=== PATIENT | female | born 1965 | race Caucasian/White ===

== ENCOUNTER 2017-06-21 12:32 | Outpatient (CLI) | payer BC, OTHER ==
[~2017-06-21] VITALS: Ht 157.5 cm; Wt 88.1 kg
[2017-06-21] MEDS ORDERED: BISA5TAB PO (12:54)
[2017-06-21] MEDS ORDERED: DOCU-143 PO (12:54)
[2017-06-21] MEDS ORDERED: ALLO300T2 PO (12:54)
[2017-06-21] MEDS ORDERED: DICL75TA2 PO (12:54)
[2017-06-21] MEDS ORDERED: GLYC10.7 IH (12:54)
[2017-06-21] MEDS ORDERED: CYCL10TA9 PO (12:54)
[2017-06-21] MEDS ORDERED: ONDN4T PO (12:54)
[2017-06-21] MEDS ORDERED: IPRA3AMP IH (12:54)
[2017-06-21] MEDS ORDERED: CHOL500049 PO (12:54)
[2017-06-21] MEDS ORDERED: PERP1TAB7 PO (12:54)
[2017-06-21] MEDS ORDERED: OXYC-202 PO (12:54)
[2017-06-21] MEDS ORDERED: FENT1PAT57 TD (12:54)
[2017-06-21] MEDS ORDERED: BUSP10TA95 PO (12:54)
[2017-06-21] MEDS ORDERED: TOLTA4 PO (12:54)
[2017-06-21] MEDS ORDERED: BUTA1CAP17 PO (12:54)
[2017-06-21] MEDS ORDERED: ROPI0.5T PO (12:54)
[2017-06-21] MEDS ORDERED: OMEP20TA33 PO (12:54)
[2017-06-21] MEDS ORDERED: CLON1TAB PO (12:54)
[2017-06-21] MEDS ORDERED: PREG150C PO (12:54)
[2017-06-21 13:01] VITALS: BP 132/90
[2017-06-21 13:32] LABS: BASOPHILS % (AUTO) 0 % (0-10); EOSINOPHILS # (AUTO) 0.1 10^3/uL (0.0-0.3); EOSINOPHILS % (AUTO) 1 % (0-10); LYMPHOCYTES # (AUTO) 2.2 X 10^3 (1.0-4.0); LYMPHOCYTES % (AUTO) 25 % (12-44); MEAN CORPUSCULAR HEMOGLOBIN 31 PG (25-34); MEAN CORPUSCULAR HGB CONC 34 G/DL (32-36); MEAN CORPUSCULAR VOLUME 91 FL (80-99); MEAN PLATELET VOLUME 9.8 FL (7.4-10.4); MONOCYTES # (AUTO) 0.6 X 10^3 (0.0-1.0); MONOCYTES % (AUTO) 7 % (0-12); NEUTROPHILS # (AUTO) 5.9 X 10^3 (1.8-7.8); NEUTROPHILS % (AUTO) 67 % (42-75); PLATELET COUNT 251 10^3/uL (130-400); RED BLOOD COUNT 4.66 10^6/uL (4.35-5.85); RED CELL DISTRIBUTION WIDTH 14.4 % (10.0-14.5); WHITE BLOOD COUNT 8.8 10^3/uL (4.3-11.0)
== END 2017-06-21 13:50 | disposition home or self-care (01) ==
LOC: PREOP 12:32
PROVIDERS: ATTEND Obstetrics & Gynecology
DX: Z01.812 Encounter for preprocedural laboratory examination (principal); Z11.2 Encounter for screening for other bacterial diseases; N81.10 Cystocele, unspecified; N81.6 Rectocele; R32 Unspecified urinary incontinence; D64.9 Anemia, unspecified
CPT/HCPCS: 36415; 85025; 87081

== ENCOUNTER 2017-06-25 12:30 | Day surgery (SDC) | payer BC, OTHER ==
[~2017-06-25] VITALS: Ht 157.5 cm; Wt 88.1 kg
[~2017-06-25 12:30] MED LIST: ALLO300T2 PO; BISA5TAB PO; BUSP10TA95 PO; BUTA1CAP17 PO; CHOL500049 PO; CLON1TAB PO; CYCL10TA9 PO; DICL75TA2 PO; DOCU-143 PO; FENT1PAT57 TD; GLYC10.7 IH; IPRA3AMP IH; OMEP20TA33 PO; ONDN4T PO; OXYC-202 PO; PERP1TAB7 PO; PREG150C PO; ROPI0.5T PO; TOLTA4 PO
[2017-06-25] MEDS ORDERED: ceFAZolin 1,000 MG (ANCEF) VIAL ONE (12:31)
[2017-06-25] MEDS ORDERED: NS (IVPB) 50 ML ONE (12:31)
[2017-06-25 12:50] VITALS: BP 160/95
[2017-06-25] MEDS ORDERED: ceFAZolin 1 GM/NS 50 ML IVPB IV ONE ×2 (13:15)
[2017-06-25] MEDS ORDERED: MIDAZOLAM 2 MG/2 ML (VERSED) VIAL IV ONE (13:15)
[2017-06-25] MEDS ORDERED: FAMOTIDINE 20MG/2ML IV (PEPCID) IV ONE (13:15)
[2017-06-25] MEDS: LACTATED RINGERS 1,000 ML IV PRN ×2 (13:24→16:05)
[2017-06-25] MEDS ORDERED: ROCURONIUM 50 MG/5 ML (ZEMURON) VIAL IV ONE (13:26)
[2017-06-25] MEDS ORDERED: fentaNYL INJECTION 250 MCG/5 ML AMP ONE (13:26)
[2017-06-25] MEDS ORDERED: MIDAZOLAM 2 MG/2 ML (VERSED) VIAL ONE (13:26)
[2017-06-25] MEDS ORDERED: SEVOFLURANE (ULTANE) 15 ML INHAL SOLN ONE (13:26)
[2017-06-25] MEDS ORDERED: DEXAMETHASONE PF 10 MG/ML (DECADRON) VIAL ONE (13:26)
[2017-06-25] MEDS ORDERED: proPOfol 200 MG/20 ML (DIPRIVAN) VIAL IV ONE (13:26)
[2017-06-25] MEDS ORDERED: LACTATED RINGERS 1,000 ML IV ONE ×2 (13:26→15:50)
[2017-06-25] MEDS ORDERED: LIDOCAINE PF 2% 5 ML (XYLOCAINE) VIAL ONE (13:26)
[2017-06-25] MEDS ORDERED: ONDANSETRON 4 MG/2 ML (SDV) Z0FRAN ONE (13:26)
[2017-06-25] MEDS ORDERED: CITRIC ACID/SOB CIT (BICITRA) 30 ML UDC ONE (14:21)
[2017-06-25] MEDS ORDERED: ESTRADIOL VAGINAL CREAM 42.5 GM (ESTRACE) VG ONE (14:25)
--- NOTE | 2017-06-25 14:49 | Progress Note-Pre Operative ---
Pre-Operative Progress Note H&P Reviewed The H&P was reviewed, patient examined and no changes noted. Date Seen by Provider: Jun 25, 2017 Time Seen by Provider: 14:48 Date H&P Reviewed: Jun 25, 2017 Time H&P Reviewed: 14:49 Pre-Operative Diagnosis: STRESS URINARY INCONTINENCE VAGINAL PROLAPSE JONATHAN PINK MD Jun 25, 2017 2:49 pm
--- NOTE | 2017-06-25 14:50 | Progress Note-Post Operative ---
Post-Operative Progess Note Surgeon (s)/Nurse Recruiter (s) Surgeon JONATHAN PINK MD Nurse Recruiter: Flor Schmidt and Mike PINK Pre-Operative Diagnosis STRESS URINARY INCONTINENCE VAGINAL PROLAPSE Post-Operative Diagnosis SAME Procedure & Operative Findings Date of Procedure 06/25/17 Procedure Performed/Findings URINE POSTERIOR VAGINAL REPAIRS WITH ENTEROCELE REPAIR wE WILL VAGINAL SLING AND CYSTOSCOPY BY dR. Veliz Anesthesia Type geta Estimated Blood Loss Estimated blood loss (mL): 100 cc Specimens/Packing Specimens Removed PORTIONS OF VAGINAL MUCOSA Packing: Kerlix IN THE VAGINA JONATHAN PINK MD Jun 25, 2017 14:50
[2017-06-25] MEDS ORDERED: ESTROGENS CONJ IV 25 MG/5 ML (PREMARIN) VIAL IVP ONE (15:00)
[2017-06-25] MEDS ORDERED: BENZOCAINE/MENTHOL (DERMOPLAST) 56 ML CAN TP PRN (15:00)
[2017-06-25] MEDS ORDERED: WATER (STERILE) FOR INJ 10 ML BTL INJ ONE (15:00)
[2017-06-25] MEDS ORDERED: KETOROLAC 30 MG/ML VIAL IVP SCH (15:00)
[2017-06-25] MEDS ORDERED: ONDANSETRON 4 MG/2 ML (SDV) Z0FRAN IVP PRN ×2 (15:00→16:30)
[2017-06-25] MEDS ORDERED: NEOSTIGMINE (BLOXIVERZ ) 1 MG/1ML 10 ML VIAL ONE (15:36)
[2017-06-25] MEDS ORDERED: GLYCOPYRROLATE 0.2 MG/ML (ROBINUL) 2 ML VIAL ONE (15:36)
--- NOTE | 2017-06-25 15:41 | Progress Note-Post Operative ---
Post-Operative Progess Note Surgeon (s)/Scrubbing Machine Operator (s) Surgeon CL GALLARDO MD Scrubbing Machine Operator: girish Pre-Operative Diagnosis MIXED INCONTINENCE, OAB, AND ISD Post-Operative Diagnosis SAME Procedure & Operative Findings Date of Procedure 06/25/17 Procedure Performed/Findings PVS AND CYSTO Anesthesia Type GENERAL Estimated Blood Loss Estimated blood loss (mL): NEGLIGIBLE Specimens/Packing Specimens Removed N/A Packing: ESTRACE VAG PACK CL GALLARDO MD Jun 25, 2017 3:41 pm
[2017-06-25] MEDS ORDERED: WATER (STERILE) FOR INJECTION 10 ML ONE (16:04)
[2017-06-25] MEDS ORDERED: ESTROGENS CONJ IV 25 MG/5 ML (PREMARIN) VIAL ONE (16:04)
[2017-06-25] MEDS ORDERED: HYDROmorphone (DILAUDID) 2 MG/ML VIAL ONE (16:09)
[2017-06-25] MEDS: HYDROmorphone (DILAUDID) 2 MG/ML VIAL IVP PRN ×4 (16:14→16:44)
[2017-06-25] MEDS ORDERED: MEPERIDINE (DEMEROL) INJ 50 MG/ML IVP PRN (16:30)
[2017-06-25] MEDS ORDERED: fentaNYL INJECTION 100 MCG/2 ML AMP IVP PRN (16:30)
[2017-06-25 17:50] VITALS: BP 146/74
[2017-06-25] MEDS: PROMETHAZINE INJ 25 MG/ML (PHENERGAN) AMP IM PRN ×2 (18:05→23:16)
[2017-06-25] MEDS: MEPERIDINE (DEMEROL) INJ 100 MG/ML IM PRN ×2 (18:07→23:15)
[2017-06-25] MEDS: D5 LR IV SOLUTION 1,000 ML IV SCH (18:08)
--- NOTE | 2017-06-25 19:18 | OPERATIVE REPORT ---
DATE OF SERVICE: 06/25/2017 PREOPERATIVE DIAGNOSIS: Vaginal prolapse and stress urinary incontinence. POSTOPERATIVE DIAGNOSIS: Vaginal prolapse and stress urinary incontinence. OPERATIVE PROCEDURE: Anterior and posterior vaginal repairs with enterocele repair as well as a pubovaginal sling and cystoscopy by Dr. Franklin. OPERATIVE DESCRIPTION: With the patient in the supine position under satisfactory general anesthesia, she was repositioned in dorsal lithotomy position in the Moris stirrups and prepped and draped in the usual fashion for vaginal surgery. Magallon catheter was placed in the urinary bladder. A weighted speculum was placed in the posterior fornix of the vagina. The anterior vaginal wall was grasped with two Luke clamps near its midpoint. The vaginal wall was opened in the midline with Metzenbaum scissors. That opening was continued to approximately 1.5 cm from the urethral meatus and then up to the apex of the vagina. The vesicovaginal space was developed and dissected over to the pubic rami bilaterally. The bladder wall was then plicated including the endopelvic fascia to elevate the bladder and lengthen the urethra. At this point Dr. Franklin assumed care of the patient for the pubovaginal sling and cystoscopy. I remained to assist. Upon completion of Dr. Franklin's portion of the procedure which he will dictate, I resumed care of the patient, resected redundant anterior vaginal wall muscular mucosa and then closed the vaginal wall with a running locked suture of 3-0 Vicryl. Hemostasis was complete. Good support was evident and the Magallon catheter was left to dependent drainage. The posterior repair was affected now by placing Luke clamps on the perineum and hymenal ring at 5 and 7 o'clock position and an inverted triangle of skin was removed from the perineal body and an upright triangle from the posterior vaginal floor. The rectovaginal space was entered sharply and then dissected bluntly to the apex of the vagina where it was explored for an enterocele, there being a small one, it was reduced and plicated with 2-0 Vicryl pursestring suture. The rectovaginal space itself was then obliterated with 2-0 Vicryl sutures. The perineal body was restored with 2-0 Vicryl sutures. The posterior vaginal wall was then reapproximated after removing the redundant mucosa. The vagina was then filled with Estrace vaginal cream and a pack of Kerlix gauze was placed. The closure of the vaginal wall came down to the hymenal ring and then down on the perineal body and then back up subcu to the hymenal ring. Digital rectal exam confirmed the structure and integrity of the rectum with no sutures into it through the rectal mucosa and no stricture or stenosis of the rectum. Sponge and needle counts were correct at this point. Estimated blood loss was 100 milliliters. The patient tolerated the procedure well, was uneventfully awakened from general anesthesia and transferred to the recovery room in stable condition. Job ID: [id number] DocumentID: [id number] Dictated Date: 06/25/2017 16:03:10 Harvest Contractor Date: 06/25/2017 19:17:23 Dictated By: JONATHAN PINK MD
[2017-06-25 19:50] VITALS: BP 121/80
[2017-06-25] MEDS: KETOROLAC 30 MG/ML VIAL IVP SCH (23:17)
[2017-06-26 01:15] VITALS: BP 92/64
[2017-06-26] MEDS: D5 LR IV SOLUTION 1,000 ML IV SCH (01:45)
--- NOTE | 2017-06-26 02:13 | OPERATIVE REPORT ---
DATE OF SERVICE: 06/25/2017 PREOPERATIVE DIAGNOSIS: Mixed incontinence with overactive bladder and intrinsic sphincter deficiency. POSTOPERATIVE DIAGNOSIS: Mixed incontinence with overactive bladder and intrinsic sphincter deficiency. OPERATION PERFORMED: Pubovaginal sling and cystoscopy. SURGEON: CL GALLARDO MD CANCER PROGRAM COORDINATOR: Vivien. COMPLICATIONS: None. PROCEDURE: Under satisfactory anesthesia and after talking to Vivien performed the first part of her surgery that will dictate. I went ahead and passed the pubovaginal sling Solyx device on both sides using the described technique. Sling was sitting nicely under the mid urethra. There was no twisting, no tension, and passage of a curved hemostat easily between the underlying tissue. I removed the Magallon catheter and performed cystoscopy to confirm the integrity of the bladder, ureteral orifices, and urethra. There was no foreign body and presence of the sling under the mid urethra. I left the bladder half full to perform a manual Valsalva maneuver after removing the cystoscope and it was negative. I then inserted a Magallon catheter draining clear fluid, and Dr. Puga proceeded with the rest of the surgery that he will dictate. ESTIMATED BLOOD LOSS: On my part, negligible. Job ID: [id number] DocumentID: [id number] Dictated Date: 06/25/2017 15:39:29 Raisin Separator Operator Date: 06/25/2017 19:07:56 Dictated By: CL GALLARDO MD
[2017-06-26] MEDS: KETOROLAC 30 MG/ML VIAL IVP SCH (04:20)
[2017-06-26 04:30] VITALS: BP 101/68
--- NOTE | 2017-06-26 08:14 | Progress Note-Standard ---
Standard Progress Note Progress Notes/Assess & Plan Date Seen by Provider: Jun 26, 2017 Time Seen by Provider: 08:13 Progress/Assessment & Plan this patient is without complaint. She is ambulating, tolerating by mouth well , has good pain control, eyes headache, denies shortness of breath, denies nausea vomiting. Patient has not voided yet. Vital Signs Date Time Temp Pulse Resp B/P (MAP) Pulse Ox O2 Delivery O2 Flow Rate FiO2 06/26/17 07:14 92 Nasal Cannula 2.00 06/26/17 04:30 97.0 80 14 101/68 96 Nasal Cannula 3.00 06/26/17 01:15 98.4 97 11 92/64 97 Nasal Cannula 3.00 06/26/17 00:34 8 28.00 06/25/17 23:16 98.0 06/25/17 23:15 98.0 06/25/17 23:08 86 17 94 28.00 06/25/17 19:50 Nasal Cannula 3.00 06/25/17 19:50 98.0 92 14 121/80 97 Nasal Cannula 3.00 06/25/17 19:25 Nasal Cannula 2.00 06/25/17 17:50 97.8 84 20 146/74 98 Nasal Cannula 3.00 06/25/17 17:50 Nasal Cannula 3.00 06/25/17 16:44 98.5 06/25/17 16:34 98.5 06/25/17 16:24 98.5 06/25/17 16:17 98.5 06/25/17 16:14 98.5 06/25/17 12:50 97.4 98 18 160/95 97 Room Air I & O 06/26/17 07:00 Intake Total 2790 ml Output Total 850 ml Balance 1940 ml Vital signs are stable. Patient is afebrile. assessment and plan post operative day number 1 doing well. Bladder trial is ongoing. Patient will be discharged home when she is ablating, voiding, tolerating by mouth, has good pain control, and discharge is approved by Dr. Franklin. Final Diagnosis vaginal prolapse and stress urinary incontinence JONATHAN PINK MD Jun 26, 2017 8:14 am
[2017-06-26] MEDS ORDERED: DOCU-143 PO (08:16)
[2017-06-26] MEDS ORDERED: OXYC-202 PO (08:16)
--- NOTE | 2017-06-26 08:18 | Discharge Instructions ---
Discharge Instructions Discharge Medications New, Converted or Re-Newed RX: RX on Chart Patient Instructions Patient Instructions: as directed Return to The Hospital For: as directed Activity & Diet Discharge Diet: No Restrictions Activity as Tolerated: No Orders-Post D/C & Referrals Follow Up Appt: Call to make follow up appt. for patient in 4 weeks. Activity: Rest for 24 hours, than as tolerated. Diet: As tolerated-Clear Liquids only if nauseated. Tomorrow, may shower or tub bathe as desired. No driving for 24 hours, no alcoholic beverages for 24 hours, and nothing per vagina (no tampons, douching, or intercourse) for 4 weeks. Patient to return to the clinic as soon as possible for: Temperature greater than 101F, Severe Pain, Foul discharge from incision or vagina, Excessive Bleeding (more than a period). JONATHAN PINK MD Jun 26, 2017 8:18 am
[2017-06-26] MEDS: oxyCODONE/APAP 10/325MG (PERCOCET 10) TABLET PO PRN ×2 (08:56→14:13)
[2017-06-26] MEDS ORDERED: DOCUSATE SODIUM 100 MG (COLACE) CAP PO SCH (09:00)
--- NOTE | 2017-06-26 11:11 | Anesthesia-General Post-Op ---
General Patient Condition Mental Status/LOC: Same as Preop Cardiovascular: Satisfactory Nausea/Vomiting: Absent Respiratory: Satisfactory Pain: Controlled Complications: Absent Post Op Complications Complications None Follow Up Care/Instructions Patient Instructions None needed. Anesthesia/Patient Condition Patient Condition Patient is doing well, no complaints, stable vital signs, no apparent adverse anesthesia problems. No complications reported per nursing. JAZZMINE LOWE CRNA Jun 26, 2017 11:11
[2017-06-26 14:09] VITALS: BP 128/78
[2017-06-26] MEDS ORDERED: IBUPROFEN 800 MG (MOTRIN) TAB PO SCH (16:00)
== END 2017-06-26 14:05 | disposition home or self-care (01) ==
LOC: SDC 12:30 → WS 17:53 → SDC 06-26 14:05
PROVIDERS: ATTEND Obstetrics & Gynecology
DX: N81.10 Cystocele, unspecified (principal); N81.5 Vaginal enterocele; N39.3 Stress incontinence (female) (male); I10 Essential (primary) hypertension; J44.9 Chronic obstructive pulmonary disease, unspecified; G47.33 Obstructive sleep apnea (adult) (pediatric); G62.9 Polyneuropathy, unspecified; G43.909 Migraine, unspecified, not intractable, without status migrainosus; F43.10 Post-traumatic stress disorder, unspecified; M79.7 Fibromyalgia; K21.9 Gastro-esophageal reflux disease without esophagitis; K59.09 Other constipation; E66.9 Obesity, unspecified; Z68.35 Body mass index [BMI] 35.0-35.9, adult; Z79.899 Other long term (current) drug therapy; Z99.81 Dependence on supplemental oxygen; Z87.891 Personal history of nicotine dependence
CPT/HCPCS: 94660; 94664; 94760; 96361; 96372; 96375; 96376

== ENCOUNTER → 2020-03-15 | Outpatient (CLI) | payer MEDICARE ==
[~2020-03-15] MED LIST changes: -IPRA3AMP IH; +IPRA3AMP31 IH; -OXYC-202 PO; +OXYC1TAB12 PO
--- NOTE | 2020-03-15 07:36 | Diagnostic Imaging Report ---
EXAMINATION: CT Abdomen Pelvis without contrast. TECHNIQUE: Multiple contiguous axial images were obtained through the abdomen and pelvis without the use of intravenous contrast. All CT scans use one or more of the following dose optimizing techniques: automated exposure control, MA and/or KvP adjustment based on a patient size and exam type, or iterative reconstruction. HISTORY: MICROSCOPIC HEMATURIA COMPARISON: None available. FINDINGS: Limited views of the lower thorax are unremarkable. The liver is normal without focal lesion. There is no biliary ductal dilation. Gallbladder is surgically absent. Pancreas is normal. Spleen is normal. Adrenal glands are normal. The kidneys are normal. There is no hydronephrosis. Urinary bladder is normal. No renal or ureteral stones. Visualized bowel is normal in caliber without obstruction or inflammation. No free fluid or air. No abdominal or pelvic lymphadenopathy. Aorta is normal in caliber without aneurysm. There are no suspicious osseus lesions. There is degenerative fusion of T10/T11. IMPRESSION: 1. Normal kidneys without stones or suspicious lesion. Dictated by: Dictated on workstation # [id number]
== END ==
LOC: RAD 07:09
PROVIDERS: ATTEND Physician Assistant
DX: R31.29 Other microscopic hematuria (principal)
CPT/HCPCS: 74176

== ENCOUNTER → 2020-05-08 | Outpatient (CLI) | payer MEDICARE ==
[~2020-05-08] MED LIST changes: +CATHETER FLUSH 10 ML SYR IV PRN; +HOLD METFORMIN - RECEIVED CONTRAST 20 ML VIAL IV SCH; +IOHEXOL 350 MG/ML 100 ML (OMNIPAQUE 350) VIAL IV ONE; +NS 100 ML (IVPB) BAG IV ONE
[2020-05-08 09:43] LABS: CHLORIDE 109 MMOL/L (98-107); POTASSIUM 4.5 MMOL/L (3.6-5.0); SODIUM 139 MMOL/L (135-145)
[2020-05-08 09:44] LABS: CALCIUM 9.5 MG/DL (8.5-10.1)
[2020-05-08 09:45] LABS: GLUCOSE 96 MG/DL (70-105); TOTAL PROTEIN 7.1 GM/DL (6.4-8.2)
[2020-05-08 09:46] LABS: CARBON DIOXIDE 21 MMOL/L (21-32)
[2020-05-08 09:47] LABS: BILIRUBIN,TOTAL 0.5 MG/DL (0.1-1.0)
[2020-05-08 09:48] LABS: ALKALINE PHOSPHATASE 59 U/L (40-136)
[2020-05-08 09:49] LABS: CREATININE SERUM 0.75 MG/DL (0.60-1.30); GFR ESTIMATED > 60
[2020-05-08 09:50] LABS: BUN/CREATININE RATIO 15
[2020-05-08 09:52] LABS: ALANINE AMINOTRANSFERASE 19 U/L (0-55)
--- NOTE | 2020-05-08 10:46 | Diagnostic Imaging Report ---
PROCEDURE: CT abdomen and pelvis with contrast. TECHNIQUE: Multiple contiguous axial images were obtained through the abdomen and pelvis after administration of intravenous contrast. Auto Exposure Controls were utilized during the CT exam to meet ALARA standards for radiation dose reduction. INDICATION: Lower abdominal pain and back pain. COMPARISON: Comparison is made with prior CT from 03/15/2020. FINDINGS: The lung bases are clear. No discrete liver mass is detected. Gallbladder is surgically absent. No biliary ductal dilatation is identified. The pancreas and spleen are unremarkable. No adrenal mass is detected. Kidneys are unremarkable. No hydronephrosis is identified. Aorta is nonaneurysmal. The small and large bowel loops are normal in caliber. No obstruction is identified. There is no free fluid or fluid collection. The bladder is unremarkable. Bony structures are nonacute. IMPRESSION: Unremarkable CT of the abdomen and pelvis. No acute abnormality is identified. Dictated by: Dictated on workstation # [id number]
== END ==
LOC: RAD 09:07
PROVIDERS: ATTEND Nurse Practitioner Family
DX: J44.9 Chronic obstructive pulmonary disease, unspecified (principal); R10.30 Lower abdominal pain, unspecified
CPT/HCPCS: 36415; 74177; 80053

== ENCOUNTER → 2021-03-04 | Outpatient (CLI) | payer MEDICARE, OTHER ==
[~2021-03-04] MED LIST changes: -CATHETER FLUSH 10 ML SYR IV PRN; -HOLD METFORMIN - RECEIVED CONTRAST 20 ML VIAL IV SCH; -IOHEXOL 350 MG/ML 100 ML (OMNIPAQUE 350) VIAL IV ONE; -NS 100 ML (IVPB) BAG IV ONE
--- NOTE | 2021-03-04 13:46 | Diagnostic Imaging Report ---
EXAMINATION: CT Chest without contrast (lung screening). TECHNIQUE: Multiple contiguous axial images were obtained through the chest without the use of intravenous contrast according to lung cancer screening protocol. All CT scans use one or more of the following dose optimizing techniques: automated exposure control, MA and/or KvP adjustment based on a patient size and exam type, or iterative reconstruction. HISTORY: 30 pack year history of smoking. COMPARISON: None available. FINDINGS: Thyroid: The thyroid is normal. Mediastinum: Heart size is normal with a trace anterior pericardial effusion. The aorta is normal in caliber. No suspicious lymphadenopathy. Lungs and airways: There are mild background emphysematous changes of the lungs without consolidation, pleural effusion, or pneumothorax. No suspicious pulmonary nodule. The airways are normal. Upper abdomen: There is diffuse hypoattenuation the liver compatible with hepatic steatosis. Musculoskeletal: No suspicious osseous lesion or compression fracture. IMPRESSION: 1. No suspicious pulmonary nodules. Recommend continued annual low-dose CT screening. 2. Mild emphysema. 3. Hepatic steatosis. LUNG-RADS CATEGORY: 1 MODIFIER: S Dictated by: Dictated on workstation # [id number]
== END ==
LOC: RAD 13:15
PROVIDERS: ATTEND Nurse Practitioner Family
DX: J43.9 Emphysema, unspecified (principal); K76.0 Fatty (change of) liver, not elsewhere classified; F17.210 Nicotine dependence, cigarettes, uncomplicated
CPT/HCPCS: 71271

== ENCOUNTER → 2021-08-01 | Outpatient (CLI) | payer MEDICARE, OTHER ==
--- NOTE | 2021-08-01 13:21 | Diagnostic Imaging Report ---
PROCEDURE: MR imaging cervical spine without contrast. TECHNIQUE: Multiplanar, multisequence MR imaging of the cervical spine was performed without contrast. DATE: August 01, 2021. COMPARISON: None. INDICATION: 55-year-old female, neck pain. FINDINGS: There is normal cervical spine alignment. There is no evidence of a diffuse marrow infiltrating or replacing process. There is no focal concerning bone lesion. There are mild degenerative related Modic endplate degenerative changes at C3-C4 and C5-C6. There is mild disc height loss at C5-C6. There is no identified abnormal signal in the cervical spinal cord. There is a right-sided perineural cyst measuring 6 mm in size at the level of C7-T1. C2-C3: There is no disc bulge. The uncovertebral and facet joints are unremarkable. There is no foraminal narrowing. There is no spinal canal stenosis. C3-C4: There is a small posterior disc osteophyte complex. The uncovertebral and facet joints are unremarkable. There is no foraminal narrowing. There is no spinal canal stenosis. C4-C5: There is no disc bulge. There are left facet degenerative changes. There is no foraminal narrowing. There is no spinal canal stenosis. C5-C6: There is a small posterior disc osteophyte complex. There are right uncovertebral degenerative changes. There is mild right foraminal narrowing. There is no spinal canal stenosis. C6-C7: There is no disc bulge. The uncovertebral and facet joints are unremarkable. There is no foraminal narrowing. There is no spinal canal stenosis. C7-T1: There is no disc bulge. The uncovertebral and facet joints are unremarkable. There is no foraminal narrowing. There is no spinal canal stenosis. IMPRESSION: 1. Disc, uncovertebral, and facet degenerative changes of the cervical spine as described level by level above. There is mild right foraminal narrowing at C5-C6. No spinal stenosis. 2. No abnormal cord signal. Dictated by: Dictated on workstation # [id number]
== END ==
LOC: RAD 10:03
PROVIDERS: ATTEND Nurse Practitioner Family
DX: M47.812 Spondylosis without myelopathy or radiculopathy, cervical region (principal); M50.322 Other cervical disc degeneration at C5-C6 level; M48.02 Spinal stenosis, cervical region; G96.191 Perineural cyst; M25.78 Osteophyte, vertebrae
CPT/HCPCS: 72141